=== PATIENT | female | born 1950 | race Caucasian/White ===

== ENCOUNTER 2018-09-18 22:02 | Emergency (ER) | payer OTHER ==
[2018-09-19 01:15] LABS: Absolute Lymphocytes (CBC) 3.3 K/uL (0.7-4.9); Absolute Monocytes 0.7 K/uL (0.1-1.3); Absolute Neutrophil 3.2 K/uL (1.8-8.0); Basophils % 1.1 % (0-1.3); Eosinophils % 2.4 % (0-4.4); Hematocrit 43.8 % (36.0-45.0); Lymphocytes % 44.4 % (15.3-44.8); MPV 8.7 fL (7.6-11.3); RBC Red Blood Cell Count 4.81 M/uL (3.86-4.86)
[2018-09-19 01:47] LABS: BUN Blood Urea Nitrogen 19 mg/dL (7-18); Bicarbonate 28 mmol/L (21-32); Glucose Level 113 mg/dL (74-106); Potassium 4.3 mmol/L (3.5-5.1); Sodium Level 142 mmol/L (136-145); Troponin (Emerg Dept Use Only) < 0.02 ng/mL (0.0-0.045)
[2018-09-19] MEDS ORDERED: ONDANSETRON 4 MG/2 ML VIAL ONE (03:40)
--- NOTE | 2018-09-19 04:19 | EDPHYS ---
Physician Documentation [facility] Name: Maty Beebe Age: 68 yrs Sex: Female : 1950 Arrival Date: 09/18/2018 Time: 22:26 Bed 28 Private MD: ED Physician Eduardo Farr HPI: 09/18 23:05 This 68 yrs old Female presents to ER via Ambulatory with complaints of Blood snw Pressure Problem. 23:05 Onset: The symptoms/episode began/occurred last night. Associated signs and symptoms: snw Pertinent positives: headache. Modifying factors: The patient symptoms are alleviated by s/s happened 4 days ago and were relieved by aspirin. It is unknown whether or not the patient has had similar symptoms in the past. The patient has not recently seen a physician, the patient's primary care provider is Dr. Dr. Cope. Historical: - Allergies: 22:47 "perfumes"; rv 22:47 statins; rv - Home Meds: 22:47 clopidogrel 75 mg oral tab 1 tab once daily [Active]; atenolol 50 mg Oral tab .5 tab rv [Active]; Ventolin Rotahaler/Rotacaps Inhl [Active]; - PSHx: 22:48 Hysterectomy; Cholecystectomy; rv - Immunization history:: Adult Immunizations not up to date. - Social history:: Smoking status: Patient/guardian denies using tobacco, the patient reports quitting approximately 11 years ago. - Ebola Screening: : Patient negative for fever greater than or equal to 101.5 degrees Fahrenheit, and additional compatible Ebola Virus Disease symptoms Patient denies exposure to infectious person Patient denies travel to an Ebola-affected area in the 21 days before illness onset. ROS: 23:04 Eyes: Negative for injury, pain, redness, and discharge, ENT: Negative for injury, snw pain, and discharge, Neck: Negative for injury, pain, and swelling, Cardiovascular: Negative for chest pain, palpitations, and edema, Respiratory: Negative for shortness of breath, cough, wheezing, and pleuritic chest pain, Abdomen/GI: Negative for abdominal pain, nausea, vomiting, diarrhea, and constipation, Back: Negative for injury and pain, : Negative for injury, bleeding, discharge, and swelling, MS/Extremity: Negative for injury and deformity. 23:04 Constitutional: Positive for malaise. 23:04 Skin: Positive for tingly hot and cold to face. 23:04 Neuro: Positive for headache, of the right mandaeism, right frontal area and right temporal area, radiates down right neck. Exam: 23:04 Constitutional: This is a well developed, well nourished patient who is awake, alert, snw and in no acute distress. Head/Face: Normocephalic, atraumatic. Eyes: Pupils equal round and reactive to light, extra-ocular motions intact. Lids and lashes normal. Conjunctiva and sclera are non-icteric and not injected. Cornea within normal limits. Periorbital areas with no swelling, redness, or edema. ENT: Nares patent. No nasal discharge, no septal abnormalities noted. Tympanic membranes are normal and external auditory canals are clear. Oropharynx with no redness, swelling, or masses, exudates, or evidence of obstruction, uvula midline. Mucous membranes moist. Neck: Trachea midline, no thyromegaly or masses palpated, and no cervical lymphadenopathy. Supple, full range of motion without nuchal rigidity, or vertebral point tenderness. No Meningismus. Chest/axilla: Normal chest wall appearance and motion. Nontender with no deformity. No lesions are appreciated. Cardiovascular: Regular rate and rhythm with a normal S1 and S2. No gallops, murmurs, or rubs. Normal PMI, no JVD. No pulse deficits. Respiratory: Lungs have equal breath sounds bilaterally, clear to auscultation and percussion. No rales, rhonchi or wheezes noted. No increased work of breathing, no retractions or nasal flaring. Abdomen/GI: Soft, non-tender, with normal bowel sounds. No distension or tympany. No guarding or rebound. No evidence of tenderness throughout. Back: No spinal tenderness. No costovertebral tenderness. Full range of motion. Skin: Warm, dry with normal turgor. Normal color with no rashes, no lesions, and no evidence of cellulitis. MS/ Extremity: Pulses equal, no cyanosis. Neurovascular intact. Full, normal range of motion. Neuro: Awake and alert, GCS 15, oriented to person, place, time, and situation. Cranial nerves II-XII grossly intact. Motor strength 5/5 in all extremities. Sensory grossly intact. Cerebellar exam normal. Normal gait. Vital Signs: 22:49 BP 154 / 76 RA; Pulse 70; Resp 18; Pulse Ox 95% on R/A; rv 22:50 BP 165 / 86 LA; Pulse 70; Resp 15; Pulse Ox 96% on R/A; Weight 79.38 kg (R); rv 09/19 00:00 BP 128 / 75; Pulse 66; Resp 15; Pulse Ox 94% ; rv 01:15 BP 124 / 59; Pulse 64; Resp 16 S; Pulse Ox 95% on R/A; rv 02:00 BP 118 / 95; Pulse 60; Resp 16; Pulse Ox 96% on R/A; rv 02:30 BP 157 / 89; Pulse 85; Resp 18; Pulse Ox 94% ; rv 02:45 BP 135 / 66; Pulse 69; Resp 18 S; Pulse Ox 95% on R/A; rv 04:11 BP 115 / 61; Pulse 64; Resp 17 S; Pulse Ox 93% on R/A; bb 04:27 BP 132 / 69; Pulse 80; Resp 14 S; Temp 97.7(O); Pulse Ox 95% on R/A; bb MDM: 09/18 22:41 Patient medically screened. snw 09/19 03:14 Data reviewed: vital signs, nurses notes. Data interpreted: Pulse oximetry: on room air snw is 95 %. Interpretation: acceptable. Counseling: I had a detailed discussion with the patient and/or guardian regarding: the historical points, exam findings, and any diagnostic results supporting the discharge/admit diagnosis, lab results, radiology results, the need for outpatient follow up. Transition of care: After a detail discussion of the patient's case, care is transferred to Eduardo Farr MD. 09/18 22:51 Order name: Flu; Complete Time: 23:48 snw 09/19 00:32 Order name: CBC with Diff; Complete Time: 01:34 snw 09/18 22:51 Order name: CT Head Brain wo Cont snw 09/19 00:32 Order name: Chem 7; Complete Time: 01:50 snw 09/19 00:32 Order name: Troponin (emerg Dept Use Only); Complete Time: 01:50 snw 09/19 01:30 Order name: Creatinine (Radiology Only); Complete Time: 01:45 EDMS 09/18 22:51 Order name: Bilateral blood pressure; Complete Time: 22:58 w 09/18 22:52 Order name: Chest Single View XRAY [facility] 09/19 00:32 Order name: CT Aorta for Dissection [facility] Administered Medications: 03:30 Drug: Zofran 4 mg Route: IVP; Site: left antecubital; fc Disposition: 04:17 Co-signature as Attending Physician, Eduardo Farr MD. ma2 Disposition: 09/19/18 04:18 Discharged to Home. Impression: Essential (primary) hypertension. - Condition is Stable. - Discharge Instructions: Hypertension, Managing Your Hypertension. - Medication Reconciliation Form, Thank You Letter, Antibiotic Education, Prescription Opioid Use form. - Follow up: Private Physician; When: Tomorrow; Reason: Continuance of care. Signatures: Dispatcher [employer] EDMS Imelda Hernandez, MIKA-C TEAM PSYCHOLOGIST-Csnw Shonna Baxter RN RN fc Christianne Hernandez RN RN Eduardo Lehman MD MD ma2 Tommie Mireles RN RN rv Corrections: (The following items were deleted from the chart) 04:33 04:18 09/19/2018 04:18 Discharged to Home. Impression: Essential (primary) bb hypertension. Condition is Stable. Forms are Medication Reconciliation Form, Thank You Letter, Antibiotic Education, Prescription Opioid Use. Follow up: Private Physician; When: Tomorrow; Reason: Continuance of care. ma2
--- NOTE | 2018-09-19 04:19 | ER ---
Nurse's Notes [facility] Name: Maty Beebe Age: 68 yrs Sex: Female : 1950 Arrival Date: 09/18/2018 Time: 22:26 Bed 28 Private MD: Diagnosis: Essential (primary) hypertension Presentation: 09/18 22:43 Presenting complaint: Patient states: "MY HEADACHE STARTED TUESDAY BUT IT GET BETTER. rv YESTERDAY ITS GETTING WORSE, AND I AM HAVING CHEST HEAVINESS. PAIN GOING DOWN TO MY NECK. WE CHECKED MY BLOOD PRESSURE, ON THE RIGHT ARM IT READ 106/54 AND ON THE LEFT ARM IS 86/54. I TOOK ASPIRIN AND SOMEHOW I GOT A LITTLE BETTER.". Transition of care: patient was not received from another setting of care. Onset of symptoms was September 18, 2018 at 12:00. Risk Assessment: Do you want to hurt yourself or someone else? Patient reports no desire to harm self or others. Initial Sepsis Screen: Does the patient meet any 2 criteria? No. Patient's initial sepsis screen is negative. Does the patient have a suspected source of infection? No. Patient's initial sepsis screen is negative. Care prior to arrival: None. 22:43 Method Of Arrival: Ambulatory rv 22:43 Acuity: RJEI 3 rv Triage Assessment: 22:49 General: Appears in no apparent distress. uncomfortable, Behavior is calm, cooperative. rv Pain: Complains of pain in HEAD. EENT: No signs and/or symptoms were reported regarding the EENT system. Neuro: Level of Consciousness is awake, alert, obeys commands, Oriented to person, place, time, situation. Cardiovascular: Capillary refill < 3 seconds. Respiratory: Airway is patent. GI: No signs and/or symptoms were reported involving the gastrointestinal system. : No signs and/or symptoms were reported regarding the genitourinary system. Derm: Skin is intact. Musculoskeletal: No signs and/or symptoms reported regarding the musculoskeletal system. Historical: - Allergies: 22:47 "perfumes"; rv 22:47 statins; rv - Home Meds: 22:47 clopidogrel 75 mg oral tab 1 tab once daily [Active]; atenolol 50 mg Oral tab .5 tab rv [Active]; Ventolin Rotahaler/Rotacaps Inhl [Active]; - PSHx: 22:48 Hysterectomy; Cholecystectomy; rv - Immunization history:: Adult Immunizations not up to date. - Social history:: Smoking status: Patient/guardian denies using tobacco, the patient reports quitting approximately 11 years ago. - Ebola Screening: : Patient negative for fever greater than or equal to 101.5 degrees Fahrenheit, and additional compatible Ebola Virus Disease symptoms Patient denies exposure to infectious person Patient denies travel to an Ebola-affected area in the 21 days before illness onset. Screenin:51 Abuse screen: Denies threats or abuse. Denies injuries from another. Nutritional rv screening: No deficits noted. Tuberculosis screening: No symptoms or risk factors identified. Fall Risk None identified. Assessment: 22:51 Reassessment: SEE TRIAGE ASSESMENT. rv 09/19 01:30 Reassessment: Patient appears in no apparent distress at this time. Patient and/or rv family updated on plan of care and expected duration. Pain level reassessed. Patient is alert, oriented x 3, equal unlabored respirations, skin warm/dry/pink. 02:55 Reassessment: Patient appears in no apparent distress at this time. No changes from rv previously documented assessment. Patient and/or family updated on plan of care and expected duration. Pain level reassessed. Patient is alert, oriented x 3, equal unlabored respirations, skin warm/dry/pink. awaiting result of CT aorta. 03:27 Reassessment: Pt complained of nausea and dizziness since Ct contrast given. Discussed fc with Imelda FABRICATOR ASSEMBLER [employer] and pt to get Zofran IV. 04:09 Reassessment: Patient and/or family updated on plan of care and expected duration. Pain bb level reassessed. Patient is alert, oriented x 3, equal unlabored respirations, skin warm/dry/pink. awaiting CT results Patient states feeling better. 04:27 Reassessment: pt verbalized understanding of and agrees to plan of care discharge bb instructions given pt exited via wheelchair accompanied by spouse. Vital Signs: 09/18 22:49 BP 154 / 76 RA; Pulse 70; Resp 18; Pulse Ox 95% on R/A; rv 22:50 BP 165 / 86 LA; Pulse 70; Resp 15; Pulse Ox 96% on R/A; Weight 79.38 kg (R); rv 09/19 00:00 BP 128 / 75; Pulse 66; Resp 15; Pulse Ox 94% ; rv 01:15 BP 124 / 59; Pulse 64; Resp 16 S; Pulse Ox 95% on R/A; rv 02:00 BP 118 / 95; Pulse 60; Resp 16; Pulse Ox 96% on R/A; rv 02:30 BP 157 / 89; Pulse 85; Resp 18; Pulse Ox 94% ; rv 02:45 BP 135 / 66; Pulse 69; Resp 18 S; Pulse Ox 95% on R/A; rv 04:11 BP 115 / 61; Pulse 64; Resp 17 S; Pulse Ox 93% on R/A; bb 04:27 BP 132 / 69; Pulse 80; Resp 14 S; Temp 97.7(O); Pulse Ox 95% on R/A; bb ED Course: 09/18 22:26 Patient arrived in ED. bb 22:40 Imelda Hernandez FNP-C is PHCP. snw 22:40 Eduardo Farr MD is Attending Physician. snw 22:46 Triage completed. rv 22:51 Patient has correct armband on for positive identification. Bed in low position. Call rv light in reach. Side rails up X 1. groundwater monitoring technician on. Pulse ox on. NIBP on. 22:52 Patient placed in an exam room, on a stretcher, on playground monitor, on pulse oximetry. rv EKG completed in triage. Results shown to MD. 23:[address] vm2 23:08 X-ray completed. Portable x-ray completed in exam room. Patient tolerated procedure kw well. 23:09 Chest Single View XRAY In Process Unspecified. EDMS 23:[address] via stretcher. kw1 23:16 CT completed. Patient tolerated procedure well. Patient moved back from CT. kw1 23:30 CT Head Brain wo Cont In Process Unspecified. EDMS 0219 01:00 Inserted saline lock: 20 gauge in left antecubital area, using aseptic technique. Blood rv collected. 01:03 Radiology exam delayed due to lab results not completed at this time. (BUN/Creatinine). kw1 02:[address] via wheelchair. kw1 02:17 CT completed. Patient tolerated procedure well. Patient moved back from CT. kw1 02:51 CT Aorta for Dissection In Process Unspecified. EDMS 04:28 No provider procedures requiring assistance completed. IV discontinued, intact, bb bleeding controlled, No redness/swelling at site. Pressure dressing applied. Administered Medications: 03:30 Drug: Zofran 4 mg Route: IVP; Site: left antecubital; fc Outcome: 04:18 Discharge ordered by . agata 04:28 Discharged to home via wheelchair, with family. sarah 04:28 Condition: stable 04:28 Discharge instructions given to patient, Instructed on discharge instructions, follow up and referral plans. Demonstrated understanding of instructions, follow-up care. 04:33 Patient left the ED. bb Signatures: Dispatcher [employer] EDMS Imelda Hernandez, MIKA-C BIOMEDICAL INSTRUMENT TECHNICIAN-Csnw Shonna Baxter RN RN fc Ballard, Brenda, RN RN Shanna Steve Victoria vm2 Wilhelm, Kimberly kw1 Alzahri, Mohammad, MD MD ma2 Vicente, Ronaldo, RN RN rv Corrections: (The following items were deleted from the chart) 04:32 04:27 Reassessment: pt verbalized understanding of and agrees to plan of care discharge bb instructions given pt ambulated with steady gait to exit accompanied by spouse sarah 04:33 04:28 Discharged to home ambulatory, with family, sarah smith
[2018-09-19 04:49] VITALS: BP 132/69; TEMP 97.7; O2SAT 95
--- NOTE | 2018-09-19 08:19 | RAD REPORT ---
EXAM DESCRIPTION: RAD - Chest Single View - 09/18/2018 11:09 pm CLINICAL HISTORY: MALAISE Chest pain. COMPARISON: Chest Pa And Lat (2 Views) dated 01/31/2018; Chest Pa And Lat (2 Views) dated 01/13/2017; C hest Pa And Lat (2 Views) dated 03/09/2016; CHEST PA AND LAT 2 VIEW dated 03/05/2014 FINDINGS: Portable technique limits examination quality. The lungs are emphysematous but grossly clear. The heart is normal in size. No displaced fractures. IMPRESSION: No acute intrathoracic process suspected.
--- NOTE | 2018-09-19 08:48 | EKG ---
Test Date: 2018-09-18 Test Time: 22:56:01 Buffer Machine: BRANDO MEASUREMENT RESULTS: Intervals: Rate: 60 IN: 168 QRSD: 78 QT: 414 QTc: 414 [place]: P: 83 IN: 168 QRS: 64 T: 73 INTERPRETIVE STATEMENTS: Normal sinus rhythm with sinus arrhythmia Normal ECG Compared to ECG 06/23/2017 11:59:07 No significant changes Electronically Signed On 09-19-18 08:46:00 CAREER DEVELOPMENT COUNSELOR by Nick Barragan
--- NOTE | 2018-09-19 16:30 | RAD REPORT ---
EXAM DESCRIPTION: Head Brain Wo Cont. CLINICAL HISTORY: 68 years Female headache/paresthesias COMPARISON: None. TECHNIQUE: Contiguous axial images of the brain were obtained without the administration of intravenous contrast . This exam was performed according to our departmental dose-optimization program, which includes aut omated exposure control, adjustment of the mA and/or kV according to patient size and/or less of iter ative reconstruction technique. FINDINGS: Brain: No acute intracranial hemorrhage. No extra-axial collection. No mass effect or james iation. Mild prominence of the sulci and cisterns Confluent periventricular and subcortical white matter hypodensity is noted. Ventricles: Allowing for underlying cerebral volume loss, ventricular size appears within normal limi ts. Vascular structures: Intracranial carotid calcifications. Globes and orbits: No acute abnormality. Bones: No acute osseous finding. Paranasal sinuses: Paranasal sinuses are clear. Mastoid air cells: Well pneumatized. Soft tissues: Within normal limits. Sout view shows no additional significant finding. IMPRESSION: No acute intracranial hemorrhage or herniation. Cerebral volume loss and chronic small vessel ischemic changes. If persistent clinical concern for ac hortencia ischemia, consider MRI brain without contrast for further evaluation. Electronically signed by Robert Huynh DO 09/18/2018 11:32 PM INVESTMENT REPRESENTATIVE Due to temporary technical issues with the PACS/Fluency reporting system, reports are being signed by the in house radiologist as a courtesy to ensure prompt reporting. The interpreting radiologist is f ully responsible for the content of the report.
--- NOTE | 2018-09-20 11:06 | RAD REPORT ---
EXAM DESCRIPTION: CT Chest With Intravenous Contrast CT Abdomen and Pelvis With Intravenous Contrast. CLINICAL HISTORY: The patient is 68 years old and is Female; neck and chest pain. COMPARISON: CTA Chest, abdomen and pelvis dated June 23, 2017 (Report not available). TECHNIQUE: Axial computed tomography images of the chest, abdomen and pelvis with intravenous contrast. Sagittal and coronal reformatted images were created and reviewed. This CT exam was performed using one or mo re of the following dose reduction techniques: Automated exposure control, adjustment of the mA and/o r kV according to patient size, and/or use of iterative reconstruction technique. FINDINGS: VASCULATURE: AORTA: Atherosclerotic vascular disease with calcified and noncalcified plaque of the aortic as well as descending aorta. Multiple areas of mural irregularities of the abdominal aorta are again noted mo st suggestive of ulcerated plaques. No aortic aneurysm. No dissection. PULMONARY ARTERIES: Unremarkable as visualized. No pulmonary embolism is identified. GREAT VESSELS OF AORTIC ARCH: No acute findings. No dissection. No occlusion or significant stenosis. CELIAC TRUNK AND MESENTERIC ARTERIES: No acute findings. No occlusion or significant stenosis. RENAL ARTERIES: No acute findings. No occlusion or significant stenosis. ILIAC ARTERIES: No acute findings. No occlusion or significant stenosis. CHEST: LUNGS: Apical predominant centrilobular emphysematous changes. Mild right lung base atelectasis versu s scarring. No focal consolidation, pleural effusion or pneumothorax. PLEURAL SPACE: See above. HEART: No cardiomegaly. No significant pericardial effusion. THYROID: Visualized thyroid is unremarkable. ABDOMEN: LIVER: Hepatic steatosis. GALLBLADDER AND BILE DUCTS: Prior cholecystectomy. No ductal dilation. PANCREAS: Unremarkable. No ductal dilation. No mass. SPLEEN: Unremarkable. No splenomegaly. ADRENALS: Unremarkable. No mass. KIDNEYS AND URETERS: Unremarkable. No hydronephrosis. No solid mass. STOMACH AND BOWEL: Sigmoid diverticulosis without CT evidence of acute diverticulitis. No obstruction. PELVIS: APPENDIX: No findings to suggest acute appendicitis. BLADDER: Unremarkable. No mass. REPRODUCTIVE: Unremarkable as visualized. CHEST, ABDOMEN and PELVIS: INTRAPERITONEAL SPACE: Unremarkable. No significant fluid collection. No free air. BONE/JOINTS: Osteopenia. SOFT TISSUES: No dislocation. VASCULATURE: Small fat-containing umbilical hernia. LYMPH NODES: Unremarkable. No enlarged lymph nodes. IMPRESSION: 1. No acrotic dissection or aneurysm. 2. Atherosclerotic vascular disease with stable appearing irregularities of the abdominal aorta more suggestive of ulcerated plaques. 3. Apical predominant emphysematous changes and right lung base scarring and/or atelectasis. 4. Sigmoid diverticulitis without CT evidence of acute diverticulitis. 5. Hepatic steatosis 6. Small fat-containing umbilical hernia. 7. Osteopenia. Electronically signed by Robert Huynh DO 09/19/2018 2:59 AM STONE FABRICATOR Due to temporary technical issues with the PACS/Fluency reporting system, reports are being signed by the in house radiologist as a courtesy to ensure prompt reporting. The interpreting radiologist is f ully responsible for the content of the report.
== END 2018-09-19 04:33 | disposition home or self-care (01) ==
LOC: ER 22:02
DX: I10 Essential (primary) hypertension (principal); I70.0 Atherosclerosis of aorta; K76.0 Fatty (change of) liver, not elsewhere classified; K57.30 Diverticulosis of large intestine without perforation or abscess without bleeding; K42.9 Umbilical hernia without obstruction or gangrene; M85.80 Other specified disorders of bone density and structure, unspecified site; Z88.8 Allergy status to other drugs, medicaments and biological substances; Z91.048 Other nonmedicinal substance allergy status; Z87.891 Personal history of nicotine dependence
CPT/HCPCS: 36415; 70450; 71045; 71275; 74175; 80048; 84484; 85025; 87804; 93005; 96374; 99285; J2405; Q9967

== ENCOUNTER 2024-06-27 09:49 | Emergency (ER) | payer OTHER ==
--- OUTSIDE RECORDS SUMMARY | 2024-06-27 09:52 | XMS REPORT | Continuity of Care Document ---
Author Name Unknown Address [address] [place] [address] [address]. [address] [employer] Address [address] [place] [address]. [address] [place] [address] Care Team Providers Care Teacher Selection Specialist Name Role Phone Francy-Mbayo_A_AH Attending Clinician Unavailable Francy-Mbayo_A_AH Admitting Clinician Unavailable Payers Payer Name Policy Type Policy Number Effective Date Expirati on Date Source [facility] (MEDICARE REPLACEMENT/ADVANT AGE - HMO) [id number] 2019 00:00:00 Encounters Start Date/Time End Date/Time Encounter Type Admission Type Attending Clinicians Care Facility Care Department Encounter ID Source 2021-05-03 00:00:00 2021-05-03 00:00:00 Outpatient PRIV PRIV [id number] [facility] 2021-05-03 00:00:00 2021-05-03 00:00:00 Outpatient PRIV PRIV [id number] [facility] 2021-05-03 00:00:00 2021-05-03 00:00:00 Outpatient PRIV PRIV [id number] [facility] 2021-05-03 00:00:00 2021-05-03 00:00:00 Outpatient PRIV PRIV [id number] [facility] 2019-09-19 07:18:00 2019-09-19 07:18:00 Outpatient Francy-Mbayo _A_AH VFP VFP [id number] [facility] 2019-09-19 07:18:00 2019-09-19 07:18:00 Outpatient Francy-Mbayo _A_AH VFP VFP [id number] [facility]
[2024-06-27] MEDS ORDERED: VALACYCLOVIR 500 MG TAB ONE (10:27)
[2024-06-27] MEDS ORDERED: ACYCLOVIR 400 MG TABLET ONE (10:29)
[2024-06-27] MEDS ORDERED: GABAPENTIN 300 MG CAP ONE (10:29)
--- NOTE | 2024-06-27 10:33 | ER ---
Nurse's Notes [facility] Name: Maty Beebe Age: 74 yrs Sex: Female : 1950 Arrival Date: 06/27/2024 Time: 09:49 Bed 18 Private MD: Diagnosis: Zoster without complications Presentation: 06/27 10:07 Chief complaint: Stabbing right ear pain x 3 days, rash on right face and neck since hb yesterday. Motrin 400 mg administered 45 mins [employer]. Coronavirus screen: At this time, the client does not indicate any symptoms associated with coronavirus-19. Ebola Screen: No symptoms or risks identified at this time. Initial Sepsis Screen: Does the patient meet any 2 criteria? No. Patient's initial sepsis screen is negative. Does the patient have a suspected source of infection? No. Patient's initial sepsis screen is negative. Risk Assessment: Do you want to hurt yourself or someone else? Patient reports no desire to harm self or others. Onset of symptoms was June 24, 2024. 10:07 Method Of Arrival: Ambulatory 10:07 Acuity: REJI 4 Triage Assessment: 10:08 General: Appears in no apparent distress. uncomfortable, Behavior is calm, cooperative, bp appropriate for age. Pain: Complains of pain in right jaw and right ear. EENT: No deficits noted. Neuro: No deficits noted. Cardiovascular: No deficits noted. Respiratory: No deficits noted. GI: No signs and/or symptoms were reported involving the gastrointestinal system. : No signs and/or symptoms were reported regarding the genitourinary system. Derm: Rash noted that is vesicular. Musculoskeletal: No deficits noted. Historical: - Allergies: 10:08 Vsfndds-HOI-LkH Reductase Inhibitors; hb - Home Meds: 10:08 atenolol 50 mg Oral tab 0.5 tab [Active]; clopidogrel 75 mg Oral tab 1 tab once daily hb [Active]; Ventolin Rotahaler/Rotacaps Inhl [Active]; - PMHx: 10:08 Hypertension; hb - Immunization history:: Adult Immunizations up to date. - Infectious Disease History:: Denies. - Social history:: Smoking status: Patient denies any tobacco usage or history of. Screenin:08 [facility] ED Fall Risk Assessment (Adult) History of falling in the last 3 months, bp including since admission No falls in past 3 months (0 pts) Confusion or Disorientation No (0 pts) Intoxicated or Sedated No (0 pts) Impaired Gait No (0 pts) Mobility Assist Device Used No (0 pt) Altered Elimination No (0 pt) Score/Fall Risk Level 0 - 2 = Low Risk. Abuse screen: Denies threats or abuse. Denies injuries from another. Nutritional screening: No deficits noted. Tuberculosis screening: No symptoms or risk factors identified. Assessment: 10:08 General: Appears in no apparent distress. uncomfortable, Behavior is appropriate for bp age. Pain: Complains of pain in right jaw and right ear. Neuro: No deficits noted. Vital Signs: 10:07 BP 163 / 91; Pulse 61; Resp 16; Temp 98.3(O); Pulse Ox 100% on R/A; Weight 79.38 kg; hb Height 5 ft. 7 in. ; Pain 9/10; 10:07 Body Mass Index 27.41 (79.38 kg, 170.18 cm) hb 10:07 Pain Scale: Adult hb ED Course: 09:52 Patient arrived in ED. ra3 09:54 Jony Chun MD is Attending Physician. hazel 10:08 Triage completed. hb 10:08 Patient has correct armband on for positive identification. bp 10:08 No provider procedures requiring assistance completed. Patient did not have IV access bp during this emergency room visit. 10:09 Arm band placed on. hb 10:12 Forest Aguilera, DULCE is Primary Nurse. bp 10:31 Juancarlos Acosta MD is Referral Physician. hazel Administered Medications: 10:34 Drug: Gabapentin PO 300 mg PO once Route: PO; bp 10:42 Follow up: Response: No adverse reaction bp 10:34 Drug: Valtrex PO 1000 mg PO once Route: PO; bp 10:42 Follow up: Response: No adverse reaction bp Medication: 10:08 VIS not applicable for this client. bp Outcome: 10:32 Discharge ordered by . hazel 10:42 Discharged to home ambulatory, with family, bp 10:42 Condition: stable 10:42 Discharge instructions given to patient, Instructed on discharge instructions, follow up and referral plans. medication usage, Demonstrated understanding of instructions, follow-up care, medications, Prescriptions given X 4, 10:43 Patient left the ED. bp Signatures: Jony Chun MD MD cha Baxter, Heather, RN RN Forest Aguilera, RN RN Danielle Ch ra3 Corrections: (The following items were deleted from the chart) 10:09 10:07 Chief complaint: Stabbing right ear pain x 3 days, rash on right face and neck hb since yesterday hb
--- NOTE | 2024-06-27 10:33 | EDPHYS ---
Physician Documentation [facility] Name: Maty Beebe Age: 74 yrs Sex: Female : 1950 Arrival Date: 06/27/2024 Time: 09:49 Bed 18 Private MD: DG Physician Jony Chun HPI: 06/27 10:26 This 74 yrs old Female presents to ER via Ambulatory with complaints of Ear hazel Pain - right. 10:26 The patient presents with pain, a rash, erythematous, vesicular, tenderness. The hazel complaints affect the right ear, chin and right jaw. Onset: The symptoms/episode began/occurred 3 day(s) ago. Modifying factors: The symptoms are alleviated by nothing, the symptoms are aggravated by nothing. Associated signs and symptoms: Pertinent positives: pain , burning. The patient has not experienced similar symptoms in the past. Historical: - Allergies: 10:08 Borhzql-LSI-WoJ Reductase Inhibitors; hb - Home Meds: 10:08 atenolol 50 mg Oral tab 0.5 tab [Active]; clopidogrel 75 mg Oral tab 1 tab once daily hb [Active]; Ventolin Rotahaler/Rotacaps Inhl [Active]; - PMHx: 10:08 Hypertension; hb - Immunization history:: Adult Immunizations up to date. - Infectious Disease History:: Denies. - Social history:: Smoking status: Patient denies any tobacco usage or history of. ROS: 10:28 Constitutional: Negative for fever, chills, and weight loss, Eyes: Negative for injury, hazel pain, redness, and discharge, ENT: Negative for injury, pain, and discharge, Neck: Negative for injury, pain, and swelling, Cardiovascular: Negative for chest pain, palpitations, and edema, Respiratory: Negative for shortness of breath, cough, wheezing, and pleuritic chest pain, Abdomen/GI: Negative for abdominal pain, nausea, vomiting, diarrhea, and constipation, Back: Negative for injury and pain, : Negative for injury, bleeding, discharge, and swelling, MS/Extremity: Negative for injury and deformity, Neuro: Negative for headache, weakness, numbness, tingling, and seizure, Psych: Negative for depression, anxiety, suicide ideation, homicidal ideation, and hallucinations, Allergy/Immunology: Negative for hives, rash, and allergies, Endocrine: Negative for neck swelling, polydipsia, polyuria, polyphagia, and marked weight changes, Hematologic/Lymphatic: Negative for swollen nodes, abnormal bleeding, and unusual bruising, 10:28 Skin: Positive for erythema, rash, of the right ear, chin and right jaw, Exam: 10:28 Constitutional: This is a well developed, well nourished patient who is awake, alert, hazel and in no acute distress. Head/Face: Normocephalic, atraumatic. Eyes: Pupils equal round and reactive to light, extra-ocular motions intact. Lids and lashes normal. Conjunctiva and sclera are non-icteric and not injected. Cornea within normal limits. Periorbital areas with no swelling, redness, or edema. ENT: Nares patent. No nasal discharge, no septal abnormalities noted. Tympanic membranes are normal and external auditory canals are clear. Oropharynx with no redness, swelling, or masses, exudates, or evidence of obstruction, uvula midline. Mucous membranes moist. Neck: Trachea midline, no thyromegaly or masses palpated, and no cervical lymphadenopathy. Supple, full range of motion without nuchal rigidity, or vertebral point tenderness. No Meningismus. Chest/axilla: Normal chest wall appearance and motion. Nontender with no deformity. No lesions are appreciated. Cardiovascular: Regular rate and rhythm with a normal S1 and S2. No gallops, murmurs, or rubs. Normal PMI, no JVD. No pulse deficits. Respiratory: Lungs have equal breath sounds bilaterally, clear to auscultation and percussion. No rales, rhonchi or wheezes noted. No increased work of breathing, no retractions or nasal flaring. Abdomen/GI: Soft, non-tender, with normal bowel sounds. No distension or tympany. No guarding or rebound. No evidence of tenderness throughout. Back: No spinal tenderness. No costovertebral tenderness. Full range of motion. Female : Normal external genitalia. MS/ Extremity: Pulses equal, no cyanosis. Neurovascular intact. Full, normal range of motion. Neuro: Awake and alert, GCS 15, oriented to person, place, time, and situation. Cranial nerves II-XII grossly intact. Motor strength 5/5 in all extremities. Sensory grossly intact. Cerebellar exam normal. Normal gait. Psych: Awake, alert, with orientation to person, place and time. Behavior, mood, and affect are within normal limits. 10:28 Skin: zoster, Vital Signs: 10:07 BP 163 / 91; Pulse 61; Resp 16; Temp 98.3(O); Pulse Ox 100% on R/A; Weight 79.38 kg; hb Height 5 ft. 7 in. ; Pain 9/10; 10:07 Body Mass Index 27.41 (79.38 kg, 170.18 cm) hb 10:07 Pain Scale: Adult hb MDM: 09:54 Medical Screening Exam initiated hazel 10:30 Differential diagnosis: varicella. Data reviewed: vital signs, nurses notes. [facility] Consideration of Admission/Observation Escalation of care including admission/observation considered. I considered the following discharge prescriptions or medication management in the emergency department Medications were administered in the Emergency Department. See MAR. Test considered but Not performed: Labs: no labs. Care significantly affected by the following chronic conditions: Hypertension. Administered Medications: 10:34 Drug: Gabapentin PO 300 mg PO once Route: PO; bp 10:42 Follow up: Response: No adverse reaction bp 10:34 Drug: Valtrex PO 1000 mg PO once Route: PO; bp 10:42 Follow up: Response: No adverse reaction bp Disposition Summary: 06/27/24 10:32 Discharge Ordered Notes: Location: Home hazel Problem: new hazel Symptoms: have improved hazel Condition: Stable hazel Diagnosis - Zoster without complications hazel Followup: hazel - With: Private Physician - When: 2 - 3 days - Reason: Recheck today's complaints, Re-evaluation by your physician Followup: hazel - With: Juancarlos Acosta MD - When: 2 - 3 days - Reason: Recheck today's complaints, Re-evaluation by your physician Discharge Instructions: - Discharge Summary Sheet hazel Blood Shinen hazel - Shingles, [id number] hazel Forms: - Medication Reconciliation Form hazel - Antibiotic Education hazel - Prescription Opioid Use hazel - Patient Portal Instructions [facility] - Leadership Thank You Letter [facility] Prescriptions: - Valtrex 1 gram Oral tablet - take 1 tablet ORAL route 3 times per day; 21 tablet; Refills: 0, Product hazel Selection Permitted - acetaminophen-codeine 300-30 mg Oral tablet - take 1 tablet ORAL route every 4-6 hours; 20 tablet; Refills: 0, Product [facility] Selection Permitted - gabapentin 300 mg Oral capsule - take 1 capsule ORAL route every 8 hours; 30 capsule; Refills: 0, Product hazel Selection Permitted - ondansetron 4 mg Oral Tablet,disintegrating - take 1 tablet ORAL route every 8 hours for 5 days prn nausea; 20 tablet; hazel Refills: 0, Product Selection Permitted Signatures: Jony Chun MD MD cha Baxter, Heather, RN RN Forest Aguilera, RN RN bp
[2024-06-27 12:27] VITALS: BP 163/91; TEMP 98.3; O2SAT 100
== END 2024-06-27 10:43 | disposition home or self-care (01) ==
LOC: ER 09:49
DX: B02.9 Zoster without complications (principal); I10 Essential (primary) hypertension
CPT/HCPCS: 99283

== ENCOUNTER 2024-07-01 13:49 | Emergency (ER) | payer OTHER ==
--- OUTSIDE RECORDS SUMMARY | 2024-07-01 13:51 | XMS REPORT | Continuity of Care Document ---
Author Name Unknown Address [address] [place] [address] [address]. [address] [place] [address] [facility] thconnect Address [address] [facility]. [address] [place] [address] Care Team Providers Care Tire Maker Name Role Phone Francy-Mbayo_A_AH Attending Clinician Unavailable Francy-Mbayo_A_AH Admitting Clinician Unavailable Payers Payer Name Policy Type Policy Number Effective Date Expirati on Date Source [facility] (MEDICARE REPLACEMENT/ADVANT AGE - HMO) [id number] 2019 00:00:00 Encounters Start Date/Time End Date/Time Encounter Type Admission Type Attending Clinicians Care Facility Care Department Encounter ID Source 2021-05-03 00:00:00 2021-05-03 00:00:00 Outpatient PRIV PRIV [id number] [facility] 2021-05-03 00:00:00 2021-05-03 00:00:00 Outpatient PRIV PRIV [id number] [facility] 2021-05-03 00:00:00 2021-05-03 00:00:00 Outpatient PRIV PRIV [id number] [facility] 2021-05-03 00:00:00 2021-05-03 00:00:00 Outpatient PRIV PRIV [id number] [facility] 2019-09-19 07:18:00 2019-09-19 07:18:00 Outpatient Francy-Mbayo _A_AH VFP VFP [id number] [facility] 2019-09-19 07:18:00 2019-09-19 07:18:00 Outpatient Francy-Mbayo _A_AH VFP VFP [id number] [facility]
--- NOTE | 2024-07-01 14:13 | EDPHYS ---
Physician Documentation [facility] Name: Maty Beebe Age: 74 yrs Sex: Female : 1950 Arrival Date: 07/01/2024 Time: 13:49 Bed 14 Private MD: ED Physician Jony Chun HPI: 07/01 14:10 This 74 yrs old Female presents to ER via Wheelchair with complaints of Head pain, Ear kb Pain. 14:10 Pt is a 74 year old female who was diagnosed with shingles 4 days ago. States she was kb given tylenol with codeine for the pain, but that is like taking a baby aspirin and doesn't do anything. Came in to get something else for pain. Also requests a steroid shot because a nurse friend of hers told her they should have given one when she was diagnosed. . Historical: - Allergies: 14:06 statins; ss 14:06 Wklaaze-Mox-Mge Reductase Inhibitors; ss - PMHx: 14:06 Hypertension; ss - Immunization history:: Adult Immunizations up to date. - Infectious Disease History:: Denies. - Social history:: Smoking status: Patient denies any tobacco usage or history of. ROS: 14:09 Constitutional: As per HPI kb Exam: 14:09 Constitutional: This is a well developed, well nourished patient who is awake, alert, kb and in no acute distress. Head/Face: Normocephalic, atraumatic. ENT: Moist Mucous membranes Cardiovascular: Regular rate Respiratory: Respirations even and unlabored. No increased work of breathing. Talking in full sentences MS/ Extremity: Pulses equal, no cyanosis. Neurovascular intact. Full, normal range of motion. Neuro: Awake and alert, GCS 15, oriented to person, place, time, and situation. 14:09 Skin: consistent with zoster, on the right ear, Vital Signs: 14:10 BP 151 / 80; Pulse 73; Resp 18; Temp 98.4(TE); Pulse Ox 97% on R/A; Weight 79.38 kg; ss Height 5 ft. 7 in. ; Pain 10/10; 14:10 Body Mass Index 27.41 (79.38 kg, 170.18 cm) ss 14:10 Pain Scale: Adult ss MDM: 13:58 Medical Screening Exam initiated kb 14:10 Differential diagnosis: allergic reaction, zoster, local infection. Data reviewed: kb vital signs, nurses notes. Historians other than the Patient: Family Member: family. Counseling: I had a detailed discussion with the patient and/or guardian regarding the historical points, exam findings, and any diagnostic results supporting the discharge/admit diagnosis, the need for outpatient follow up, a family practitioner, to return to the emergency department if symptoms worsen or persist or if there are any questions or concerns that arise at home. Administered Medications: 14:28 Drug: Dexamethasone IM 10 mg IM once Route: IM; Site: left deltoid; ko1 14:43 Follow up: Response: No adverse reaction ko1 14:28 Drug: [place] PO 10 mg-325 mg 1 tabs PO once Route: PO; ko1 14:43 Follow up: Response: No adverse reaction; Medication administered at discharge. ko1 Disposition Summary: 07/01/24 14:12 Discharge Ordered Notes: Location: Home kb Condition: Stable kb Diagnosis - Zoster without complications kb Followup: kb - With: Emergency Department - When: As needed - Reason: Worsening of condition Followup: kb - With: Private Physician - When: 2 - 3 days - Reason: Recheck today's complaints, Continuance of care, Re-evaluation by your physician Discharge Instructions: - Discharge Summary Sheet kb - Shingles, [id number] kb Forms: - Medication Reconciliation Form kb - Antibiotic Education kb - Prescription Opioid Use kb - Patient Portal Instructions kb - Leadership Thank You Letter kb Signatures: Shila Malloy FNP-C FNP-Ckb Blanchard, Shelby, RN RN Bea Motta RN RN ko1
--- NOTE | 2024-07-01 14:13 | ER ---
Nurse's Notes [facility] Name: Maty Beebe Age: 74 yrs Sex: Female : 1950 Arrival Date: 07/01/2024 Time: 13:49 Bed 14 Private MD: Diagnosis: Zoster without complications Presentation: 07/01 14:05 Chief complaint: Spouse and/or significant other states: diagnosed with shingles on ss Tuesday, and is having worse pain to R ear. Coronavirus screen: Client denies travel out of the [place] in the last 14 days. Ebola Screen: Patient denies exposure to infectious person. Patient denies travel to an Ebola-affected area in the 21 days before illness onset. Initial Sepsis Screen: Does the patient meet any 2 criteria? No. Patient's initial sepsis screen is negative. Does the patient have a suspected source of infection? No. Patient's initial sepsis screen is negative. Risk Assessment: Do you want to hurt yourself or someone else? Patient reports no desire to harm self or others. Onset of symptoms was June 27, 2024. 14:05 Method Of Arrival: Wheelchair ss 14:05 Acuity: REJI 4 ss Historical: - Allergies: 14:06 statins; ss 14:06 Yvpcbiq-Emn-Ltp Reductase Inhibitors; ss - PMHx: 14:06 Hypertension; ss - Immunization history:: Adult Immunizations up to date. - Infectious Disease History:: Denies. - Social history:: Smoking status: Patient denies any tobacco usage or history of. Screenin:00 [facility] ED Fall Risk Assessment (Adult) History of falling in the last 3 months, ko1 including since admission No falls in past 3 months (0 pts) Confusion or Disorientation No (0 pts) Intoxicated or Sedated No (0 pts) Impaired Gait No (0 pts) Mobility Assist Device Used No (0 pt) Altered Elimination No (0 pt) Score/Fall Risk Level 0 - 2 = Low Risk Oriented to surroundings, Maintained a safe environment, Educated pt \T\ family on fall prevention, incl call for assistance when getting out of bed, Assessed \T\ reinforced patient's understanding of fall precautions, Hourly rounding (assess needs \T\ fall precautionary measures) done. Abuse screen: Denies threats or abuse. Denies injuries from another. Nutritional screening: No deficits noted. Tuberculosis screening: No symptoms or risk factors identified. Assessment: 14:00 General: Appears uncomfortable, Behavior is calm, cooperative, appropriate for age. ko1 Pain: Complains of pain in right ear. Neuro: No deficits noted. Cardiovascular: No deficits noted. Respiratory: No deficits noted. GI: No deficits noted. : No deficits noted. EENT: Reports pain in right ear. Derm: No deficits noted. Musculoskeletal: No deficits noted. Vital Signs: 14:10 BP 151 / 80; Pulse 73; Resp 18; Temp 98.4(TE); Pulse Ox 97% on R/A; Weight 79.38 kg; ss Height 5 ft. 7 in. ; Pain 10/10; 14:10 Body Mass Index 27.41 (79.38 kg, 170.18 cm) ss 14:10 Pain Scale: Adult ss ED Course: 13:51 Patient arrived in ED. mr 13:58 Shila Malloy, SCOTTY [facility] kb 13:58 Jony Chun MD is Attending Physician. kb 14:00 Patient has correct armband on for positive identification. Allergy band placed. Bed in ko1 low position. Call light in reach. Provided Education on: meds. Pulse ox on. NIBP on. Door closed. Noise minimized. Lights dimmed. Warm blanket given. Pillow given. 14:00 No provider procedures requiring assistance completed. Patient did not have IV access ko1 during this emergency room visit. 14:06 Triage completed. ss 14:06 Arm band placed on left wrist. ss 14:22 Bea Contreras, RN is Primary Nurse. ko1 Administered Medications: 14:28 Drug: Dexamethasone IM 10 mg IM once Route: IM; Site: left deltoid; ko1 14:43 Follow up: Response: No adverse reaction ko1 14:28 Drug: [place] PO 10 mg-325 mg 1 tabs PO once Route: PO; ko1 14:43 Follow up: Response: No adverse reaction; Medication administered at discharge. ko1 Medication: 14:00 VIS not applicable for this client. ko1 Outcome: 14:12 Discharge ordered by . kb 14:45 Discharged to home ambulatory, with family, ko1 14:45 Condition: stable 14:45 Discharge instructions given to patient, family, Instructed on discharge instructions, follow up and referral plans. Demonstrated understanding of instructions, follow-up care, 15:02 Patient left the ED. ko1 Signatures: Shila Malloy, MIKA-C VENEER STOCK LAYER-Diamante Paz, Hakeem Reg Sue Kasper, RN RN ss eBa Contreras RN RN ko1
[2024-07-01] MEDS ORDERED: HYDROCODONE/APAP 10/325 TAB ONE (14:22)
[2024-07-01] MEDS ORDERED: dexAMETHasone 10 MG/ML VIAL ONE (14:22)
[2024-07-01 17:27] VITALS: BP 151/80; TEMP 98.4; O2SAT 97
== END 2024-07-01 15:02 | disposition home or self-care (01) ==
LOC: ER 13:49
DX: B02.9 Zoster without complications (principal)
CPT/HCPCS: 96372; 99284; J1100